=== PATIENT | male | born 1990 | race Caucasian/White ===

== ENCOUNTER 2024-11-24 00:32 | Emergency (ER) | payer BC, SELFPAY ==
[2024-11-24 00:40] VITALS: BP 132/76
--- NOTE | 2024-11-24 01:11 | ED.GENMED ---
History of Present Illness
General
Chief Complaint: Musculo-Skeletal Complaint
Source: patient
Exam Limitations: none
Time Seen by Provider: 11/24/24 00:56
Nursing documentation reviewed up to this point in time: agreed with
History of Present Illness
History of Present Illness:
Patient presents to ED secondary to worsening right foot pain, after he was hit with a hockey puck, while he was playing ice hockey around 10:30 PM. Patient was able to play the rest of the game. However, when he took his ice skate off, he noticed
redness with swelling. Since then, pain has worsened, especially with ambulation. Denies any other injuries. Denies loss of sensation.
Past History
Past History
ED Past Medical History: Asthma
ED Past Surgical History: None
Social History
Tobacco: Former smoker
Alcohol: Occasional
Personal: Single
Living: with family
Review of Systems
Review of Systems
Allergies reviewed?: Yes
All Other Systems: ROS reviewed and negative except as documented in HPI and ROS
Constitutional: Reports no symptoms; Denies fever
Musculoskeletal: Reports other (Foot pain with redness)
Skin: Reports no symptoms
Neurological: Reports no symptoms
Phy Exam
Physical Exam
Physical Exam:
Physical Exam
General: no apparent distress, not acutely ill. afebrile
Head: nc/at. eomi
Neck: supple. normal range of motion
Neuro: alert and oriented x 3. no focal neurological deficits
Skin: no rash
Psychiatric: well kept. interactive and cooperative
Extremities: an approx 1cm area of erythema with tenderness over mid-right 1st metatarsal bone without ecchymosis/deformity.
Course
Orders/Labs/Results
Orders:
Orders
11/24/24 00:42
Foot, Right 3 View [CR Foot - Right Min 3 Views] Urgent
Comment:
Reason For Exam: HIT WITH HOCKEY PUCK ON TOP OF FOOT
Vital Signs
Initial and Last Documented VS:
Initial Vital Signs
Temp Resp BP Pulse Ox
97.8 F 16 132/76 100
11/24/24 00:40 11/24/24 00:40 11/24/24 00:40 11/24/24 00:40
Last Documented Vital Signs
Temp Pulse Resp BP Pulse Ox
97.8 F 70 20 121/74 98
11/24/24 00:40 11/24/24 01:33 11/24/24 01:33 11/24/24 01:33 11/24/24 01:49
MDM/Problems Addressed
MDM/Problems Addressed:
History and exam consistent with foot contusion. No evidence of fracture noted on initial preliminary x-ray reading by myself. Patient will be advised to apply ice, take Tylenol/NSAIDs for relief, along with PCP follow-up as an outpatient.
*Critical Care Note
Total Time (30-74mins, 75-104mins- exclusive of procedures): Not Applicable
ED Attending Note
-
Portions of this chart may have been created with voice recognition software.� Occasional wrong word or��sound alike� substitutions may have occurred due to the inherent limitations of voice recognition software.
Discharge Plan
Departure
Patient Disposition: Home (Routine Discharge)
Date of Disposition: 11/24/24
Time of Disposition: 01:15
Patient with high blood pressure during this ER visit?: Yes
Condition: Good
Discharge Problem:
Contusion of foot
Instructions: Contusion (DC)
Prescriptions:
No Action
albuterol 90 mcg/actuation Aerosol
90 mcg INHALATION PRN PRN (Reason: asthma)
albuterol sulfate 2.5 mg /3 mL (0.083 %) Solution For Nebulization
2.5 mg inhalation PRN PRN (Reason: .emergency)
fexofenadine [Vicenta] 180 mg Tablet
180 mg PO DAILY
montelukast 10 mg Tablet
10 mg PO DAILY
rizatriptan 10 mg Tablet
10 mg PO DAILY
Referrals:
Jose Alfredo Dean MD [Family Provider] -
Stand Alone Forms: Return to Work
Activity Restrictions/Additional Instructions:
As discussed, please follow-up with your primary care physician with any further concerns. In ED, x-ray did not reveal any acute abnormal findings.
Interventions
Interventions:
*Risk Screen - Suicide Last Done: 11/24/24 00:40
*General Assessment Last Done: 11/24/24 01:42
*Neglect/Abuse Screening Last Done: 11/24/24 00:40
*ED- Fall Risk Assessment Last Done: 11/24/24 01:42
*ED COVID-19 Vaccine History Last Done: 11/24/24 01:42
*Nursing Disposition Last Done: 11/24/24 01:49
ED-Musculoskeletal Assessment Last Done: 11/24/24 01:42
Discharge Date and Time
Discharge Date/Time: 11/24/24 01:50
Print Language: CAMBODIAN
[2024-11-24 01:33] VITALS: BP 121/74
== END 2024-11-24 01:50 | disposition home or self-care (01) ==
LOC: EMR 00:32
PROVIDERS: EMERGENCY PHYSICIAN Emergency Medicine; FAMILY PHYSICIAN Internal Medicine
DX: S90.31XA Contusion of right foot, initial encounter (principal); W21.220A Struck by ice hockey puck, initial encounter; J45.909 Unspecified asthma, uncomplicated; Z87.891 Personal history of nicotine dependence
CPT/HCPCS: 99283; 73630

== ENCOUNTER → 2024-12-01 15:30 | Outpatient (REF) | payer BC, SELFPAY | LOC: HWRAD 15:30 | PROVIDERS: ATTENDING PHYSICIAN Internal Medicine | DX: S90.31XA Contusion of right foot, initial encounter (principal) | CPT/HCPCS: 73630 ==